=== PATIENT | female | born 1960 | race Hispanic/Latino ===

== ENCOUNTER 2018-05-18 06:49 | Day surgery (SDC) | payer OTHER ==
[2018-05-10 08:07] VITALS: BMI 31.1
[2018-05-18 07:27] LABS: BASO # 0.03 K/mm3 (0.0-2.0); BASO % 0.2 % (0.0-3.0); EOS # 0.1 (0.0-0.7); EOS % 0.7 % (1.5-5.0); GRAN # 13.47 (1.4-6.5); GRAN % 81.6 % (50.0-68.0); HEMOGLOBIN 9.8 g/dL (12.0-16.0); LYMPH # 1.9 (1.2-3.4); LYMPH % 11.4 % (22.0-35.0); MEAN CORPUSCULAR HEMOGLOBIN 30.7 pg (25.0-35.0); MEAN CORPUSCULAR HGB CONC 30.7 g/dl (31.0-37.0); MEAN PLATELET VOLUME 9.3 fl (7.0-11.0); MONO % 6.1 % (1.0-6.0); RBC 3.19 10^6/uL (3.5-6.1); RED CELL DISTRIBUTION WIDTH 15.7 % (11.5-14.5); WHITE BLOOD COUNT 16.5 10^3/uL (4.5-11.0)
[2018-05-18 07:35] LABS: INR 1.2; PARTIAL THROMBOPLASTIN TIME 27.4 Seconds (25.1-36.5); PROTHROMBIN TIME 13.8 SECONDS (9.4-12.5)
[2018-05-18 07:36] LABS: CALCIUM 10.7 mg/dL (8.4-10.5)
[2018-05-18] MEDS ORDERED: Iohexol 350mgl/ml 50 ML ONE (07:43)
[2018-05-18] MEDS ORDERED: Iodixanol 320 MG/ML 100 ML BOTTLE IV ONE (07:43)
[2018-05-18] MEDS ORDERED: Nitroglycerin 50mg in D5W 50 MG/250 ML BOTTLE IV ONE (07:43)
[2018-05-18] MEDS ORDERED: Iodixanol 320 MG/ML 200 ML BOTTLE IV ONE (07:43)
[2018-05-18] MEDS ORDERED: Lidocaine 2% Inj (20ml) ONE ×2 (07:43→09:16)
[2018-05-18] MEDS ORDERED: Phenylephrine 10 mg/ml Inj ONE (07:43)
[2018-05-18] MEDS ORDERED: Verapamil 2 ML ONE (07:44)
[2018-05-18] MEDS ORDERED: Heparin 2,000 ML IV ONE (07:44)
[2018-05-18] MEDS ORDERED: Iodixanol 320 mg/ml 150 ml Bottle IV ONE (07:49)
--- NOTE | 2018-05-18 08:05 | HP ---
DATE OF EXAM: 05/17/2018 REASON FOR ADMISSION: Peripheral angiogram and possible PTCA of left SFA. BRIEF CLINICAL HISTORY: This is a 58-year-old female with past medical history significant for end-stage renal disease, on dialysis Tuesday, Tuesday and Tuesday for 10 years; history of hypertension; gastroesophageal reflux; negative stress test, echo and Holter, but the patient underwent KAIA and PVR that was very abnormal. KAIA and PVR on right side is 0.93 and KAIA on the left 0.77. The patient is scheduled for peripheral angiogram. The patient is complaining of severe claudication of left leg,When she walks has to stop it after half a block and then after taking a rest can walk half a block. PAST MEDICAL HISTORY: Significant for hypertension more than 27 years, gastroesophageal reflux, and end-stage renal disease, on dialysis Tuesday, Tuesday and Tuesday more than 10 years. Recent cardiac workup as follows: The patient had a stress test dated 04/26/2017 showed normal myocardial perfusion study Persantine, ejection fraction 69%. The patient had echocardiography on 04/26/2017 that showed ejection fraction of 61%, moderate aortic regurgitation, mild tricuspid regurgitation, and mild mitral regurgitation dated 04/26/2017. The patient had KAIA and PVR done that shows KAIA on the right is 0.93 and KAIA on the left is 0.77 with the blunting of Blood pressure tracing on the lower extremities. CURRENT MEDICATIONS: The patient is taking Victoza, Flonase, enalapril 20 mg daily, atenolol 100 mg daily, sucralfate 500 mg, ranitidine 150, and amlodipine 5 mg daily. ALLERGIES: VANCOMYCIN, AMOXICILLIN AND CLAVULANIC ACID. REVIEW OF SYSTEMS: As per HPI. PHYSICAL EXAMINATION: VITAL SIGNS: Height of the patient is 5 feet 2 inches, weight of the patient is 170 pounds, and body mass index 31.1 kg/m2. Rest of the examination as follows; temperature afebrile, heart rate 60, and blood pressure 130/80. HEENT: PERRLA EOMI intact. NECK: Supple. No carotid bruit or thyromegaly. CHEST: Clear to auscultation. HEART: S1 and S2 regular. ABDOMEN: Soft. EXTREMITIES: Clubbing and cyanosis negative. A 1+ distal pulse left on the Doppler. IMPRESSION AND PLAN: A 58-year-old female with past medical history significant for end-stage renal disease, on dialysis Tuesday, Tuesday and Tuesday 10 years; hypertension 27 years, gastroesophageal reflux, and abnormal KAIA and PVR. She is scheduled for elective peripheral angiogram and possible angioplasty. Further recommendation after cardiac catheterization and peripheral angiogram. We will follow with you. Thank you Dr. Ballesteros for providing us the opportunity in taking care of the patient, Kim Garces. Emma Augustine MD MTDUmang
[2018-05-18] MEDS ORDERED: Midazolam 2 MG/2 ML VIAL ONE ×2 (08:23→09:01)
[2018-05-18] MEDS ORDERED: Aspirin 325 mg EC Tablets PO SCH (10:00)
[2018-05-18] MEDS ORDERED: Sodium Chloride 0.9% 1,000 ML IV SCH (11:00)
[2018-05-18] MEDS ORDERED: SUCROFERRIC OXYHYDROXIDE 500 MG PO SCH (11:30)
[2018-05-18] MEDS ORDERED: Insulin Reg-LOW-Coverage SC SCH (11:30)
--- NOTE | 2018-05-18 11:36 | CPOSTOP ---
CARDIOVASCULAR LAB POSTPROCEDURE NOTE DATE: 05/18/2018 PHYSICIAN: Dr. Ankit Augustine. COSTING MANAGER: Keri Harmon, husbandry technician, ROBERTA. TYPE OF ANESTHESIA: Moderate conscious sedation, total 2 mg of Versed and 50 of fentanyl given. PRE-PROCEDURE DIAGNOSES: Severe claudication and peripheral arterial disease. PROCEDURE PERFORMED: 1. Abdominal aortogram, distal. 2. Bilateral peripheral angiogram. 3. Stenting of bilateral common iliac. FINDINGS: 90% bilateral common iliac stenosis. FINAL DIAGNOSIS: Severe peripheral artery disease. POST PROCEDURE CONDITION: The post procedure patient condition is stable. VASCULAR ACCESS SITE: Right and left femoral artery. CLOSURE DEVICE: Mynx. TOTAL RADIATION DOSE: 27752.70 milligray unit. TOTAL FLUORO TIME: 14.4 minute. Emma Augustine MD MTDUmang
[2018-05-18 12:03] VITALS: TEMP 97.8
[2018-05-18 13:02] VITALS: RESP 18
--- NOTE | 2018-05-18 14:01 | CP.PCM.CON ---
<ZhannaDarrel hutchison - Last Filed: 05/18/18 21:59> History of Present Illness - History of Present Illness History of Present Illness: Nephro consult Note for Dr. Márquez Service Consulted for: Possible HD This is a 58 yo F with PMH of HTN, GERD, ESRD (2/2 HTN) on HD M/W/F who presented to same-day surgery for elective bilateral LE angiogram. As per Cardio, Nephro consulted to assess if pt needs to undergo HD s/p procedure. As per daughter at bedside, patient has undergone HD each of the last 3 days. Baseline HD is 2-3 hr sessions with approx 3L removed at each session. Tuesday's session was abbreviated due to patient reporting dizziness, and some fluid was returned. Patient underwent another session Tuesday to make up for abbreviated Tuesday session, and had approx 2L removed. Underwent normal session yesterday. No sensation of fluid overload, shortness of breath, orthopnea, cough, LE swelling, or chest pain. Patient lying flat at time of eval in same-day surgery, without complaint or distress. No other active complaints from patient. Bilateral pressure bandaged in groin area, no bleeding or strikethrough observed. As per sleep lab technician staff, patient received 150ccs of visipaque during the procedure, 75cc per leg. Bilateral common iliac stents placed due to bilateral 90% stenosis, as per Cardio. Pt with severe PAD. 12-system ROS reviewed and negative, except as above. PMH: as above PSH: AV fistula graft placement Fam Hx: denies relevant fam hx Soc Hx: reports former tobacco user (1/3 ppd for > 30 yrs, quit > 5 yrs ago), denies alcohol/illicits/IVDA PMD: Dr. Hamm Review of Systems - Review of Systems All systems: reviewed and no additional remarkable complaints except (as per HPI) Past Patient History - CARDIAC Hx Pacemaker: No - NEUROLOGICAL Hx Paralysis: No - HEMATOLOGICAL/ONCOLOGICAL Hx Blood Transfusions: No - MUSCULOSKELETAL/RHEUMATOLOGICAL Hx Musculoskeletal Disorders: No - PSYCHIATRIC Hx Emotional Abuse: No Hx Physical Abuse: No Hx Substance Use: No - SURGICAL HISTORY Hx Surgeries: Yes - ANESTHESIA Hx Anesthesia Reactions: No Hx Malignant Hyperthermia: No Meds Allergies/Adverse Reactions: Allergies Allergy/AdvReac Type Severity Reaction Status Date / Time vancomycin Allergy Severe ANAPHYLAXIS Verified 05/10/18 08:07 amoxicillin [From Augmentin] AdvReac Intermediate ABD PAIN Verified 05/12/18 11:42 clavulanic acid AdvReac Intermediate ABD PAIN Verified 05/12/18 11:42 [From Augmentin] - Medications Medications: Current Medications Amlodipine Besylate (Norvasc) 5 mg PO QAM [facility] Aspirin (Ecotrin) 81 mg PO DAILY [facility] Aspirin (Ecotrin) 325 mg PO DAILY [facility] Last Admin: 05/18/18 10:35 Dose: 325 mg Atenolol (Tenormin) 100 mg PO QPM [facility] Atorvastatin Calcium (Lipitor) 40 mg PO DIN [facility] Clopidogrel Bisulfate (Plavix) 75 mg PO DAILY [facility] Fluticasone Propionate (Flonase) 1 actuation NS DAILY [facility] Insulin Human Regular (Humulin R Low) 0 units SC ACHS [facility]; Protocol Non-Formulary Medication (Enalapril Maleate [Vasotec]) 20 mg PO QAM [facility] Non-Formulary Medication (Liraglutide [Victoza 2-Federico]) 0.6 mg SQ QPM [facility] Non-Formulary Medication (Ranitidine Hcl [Heartburn Relief]) 150 mg PO BID [facility] Non-Formulary Medication (Sucroferric Oxyhydroxide [Velphoro]) 500 mg PO ACTID [facility] Physical Exam - Constitutional Appears: Non-toxic, No Acute Distress - Head Exam Head Exam: ATRAUMATIC, NORMAL INSPECTION, NORMOCEPHALIC - Eye Exam Eye Exam: Normal appearance. absent: Conjunctival injection, Scleral icterus Pupil Exam: absent: Irregular, Unequal - ENT Exam ENT Exam: Mucous Membranes Moist - Neck Exam Neck exam: Positive for: Full Rom, Normal Inspection - Respiratory Exam Respiratory Exam: Clear to Auscultation Bilateral, NORMAL BREATHING PATTERN. absent: Accessory Muscle Use, Chest Wall Tenderness, Decreased Breath Sounds, Rales, Rhonchi, Wheezes - Cardiovascular Exam Cardiovascular Exam: REGULAR RHYTHM, RRR, +S1, +S2. absent: Bradycardia, Tachycardia, Irregular Rhythm, JVD, +S4 - GI/Abdominal Exam GI & Abdominal Exam: Normal Bowel Sounds, Soft. absent: Diminished Bowel Sounds, Hyperactive Bowel Sounds, Hypoactive Bowel Sounds, Tenderness - Extremities Exam Extremities exam: Positive for: normal capillary refill, pedal pulses present (bilateral dorsalis pedis +1 pulses, +2 radials bilaterally). Negative for: calf tenderness, pedal edema, tenderness Additional comments: bilateral LE groin pressure bandages in place, no palpable masses, no bleeding or strikethrough seen through bandages - Back Exam Back exam: absent: CVA tenderness (L), CVA tenderness (R) - Neurological Exam Additional comments: awake and alert, following all commands, holding LE immobile intentionally but moving bilateral UE spontaneously - Psychiatric Exam Psychiatric exam: Normal Affect, Normal Mood - Skin Skin Exam: Dry, Intact (except as documented in extremities exam), Normal Color, Warm Results - Vital Signs Recent Vital Signs: Last Vital Signs Temp 97.8 F 05/18/18 13:15 Pulse 65 05/18/18 13:15 Resp 18 05/18/18 13:15 BP 125/60 05/18/18 13:15 Pulse Ox 97 05/18/18 13:15 - Labs Result Diagrams: 05/18/18 15:16 05/18/18 15:16 Labs: Laboratory Results - last 24 hr 05/18/18 05/18/18 05/18/18 07:00 07:00 07:00 WBC 16.5 H RBC 3.19 L Hgb 9.8 L Hct 31.9 L MCV 100.0 MCH 30.7 MCHC 30.7 L RDW 15.7 H Plt Count 288 MPV 9.3 Gran % 81.6 H Lymph % (Auto) 11.4 L Gilliam % (Auto) 6.1 H Eos % (Auto) 0.7 L Baso % (Auto) 0.2 Gran # 13.47 H Lymph # (Auto) 1.9 Gilliam # (Auto) 1.0 H Eos # (Auto) 0.1 Baso # (Auto) 0.03 PT 13.8 H INR 1.20 APTT 27.4 Sodium 140 Potassium 4.2 Chloride 100 Carbon Dioxide 29 Anion Gap 15 BUN 31 H Creatinine 5.6 H Est GFR ( Amer) 9 Est GFR (Non-Af Amer) 8 Random Glucose 149 H Calcium 10.7 H Triglycerides 179 H Cholesterol 163 LDL Cholesterol Direct 95 HDL Cholesterol 28 L Blood Type Blood Type Confirm Antibody Screen BBK History Checked 05/18/18 05/18/18 07:00 07:57 WBC RBC Hgb Hct MCV MCH MCHC RDW Plt Count MPV Gran % Lymph % (Auto) Gilliam % (Auto) Eos % (Auto) Baso % (Auto) Gran # Lymph # (Auto) Gilliam # (Auto) Eos # (Auto) Baso # (Auto) PT INR APTT Sodium Potassium Chloride Carbon Dioxide Anion Gap BUN Creatinine Est GFR ( Amer) Est GFR (Non-Af Amer) Random Glucose Calcium Triglycerides Cholesterol LDL Cholesterol Direct HDL Cholesterol Blood Type O POSITIVE Blood Type Confirm O POSITIVE Antibody Screen Negative BBK History Checked No verified bt Assessment & Plan - Assessment and Plan (Free Text) Assessment: This is a 58 yo F with PMH of HTN, GERD, ESRD (2/2 HTN) on HD M/W/F who presented to same-day surgery for elective bilateral LE angiogram. As per Cardio, Nephro consulted to assess if pt needs to undergo HD s/p procedure. Plan: Patient does not require HD at this time. She should instead present for her routine HD tomorrow, and continue her current schedule. Reviewed and discussed with attending, Dr. Márquez. <Chaz Márquez S - Last Filed: 05/20/18 18:02> Results - Vital Signs Recent Vital Signs: Last Vital Signs Temp 97.8 F 05/18/18 15:30 Pulse 66 05/18/18 16:58 Resp 18 05/18/18 16:58 BP 124/64 05/18/18 16:58 Pulse Ox 97 05/18/18 16:58 - Labs Result Diagrams: 05/18/18 15:16 05/18/18 15:16 Assessment & Plan - Assessment and Plan (Free Text) Plan: Pt seen and examined. This is a late entry. I have reviewed the note of the medical supply technician and agree with it. I have reviewed the meds and labs of the pt. I have discussed the assessment and plan with the resident. Pt had 3 days of HD. She is going to get HD in the am 1st shift. Spoke to Dr Augustine. She had a cath.
[2018-05-18 15:23] LABS: BASO # 0.02 K/mm3 (0.0-2.0); BASO % 0.2 % (0.0-3.0); EOS # 0.1 (0.0-0.7); GRAN # 8.6 (1.4-6.5); GRAN % 78.1 % (50.0-68.0); HEMOGLOBIN 8.5 g/dL (12.0-16.0); LYMPH # 1.7 (1.2-3.4); LYMPH % 15.5 % (22.0-35.0); MEAN CELL VOLUME 99.6 fl (80.0-105.0); MEAN CORPUSCULAR HEMOGLOBIN 30.6 pg (25.0-35.0); MEAN CORPUSCULAR HGB CONC 30.7 g/dl (31.0-37.0); MONO # 0.6 (0.1-0.6); MONO % 5.2 % (1.0-6.0); RBC 2.78 10^6/uL (3.5-6.1); RED CELL DISTRIBUTION WIDTH 15.8 % (11.5-14.5)
[2018-05-18 16:04] VITALS: O2SAT 97
[2018-05-18 16:59] VITALS: BP 124/64; PULSE 66
[2018-05-18] MEDS ORDERED: RANITIDINE HCL 150 MG PO SCH (18:00)
[2018-05-18] MEDS ORDERED: LIRAGLUTIDE 0.6 MG SQ SCH (18:00)
[2018-05-19] MEDS ORDERED: Fluticasone Nasal 50 mcg/Spray NS SCH (10:00)
[2018-05-19] MEDS ORDERED: Non Formulary Medication (Enalapril Maleate [Vasotec] 20 MG) PO SCH (10:00)
--- NOTE | 2018-05-19 10:35 | VAS ---
DATE: 05/18/2018 TYPE OF DICTATION: Peripheral angiogram, abdominal aortogram and bilateral PTCA of common iliac. PROCEDURES PERFORMED: 1. Distal abdominal aortogram. 2. Bilateral lower extremities peripheral angiogram with three vessels runoff using DSA (digital substraction angiography). 3. Plain balloon angioplasty simultaneously with kissing balloon of both common iliac. 4. Stenting of both common iliac simultaneously with kissing stent with balloon inflated stent in both common iliac. REFERRING PHYSICIAN: Jason Ballesteros MD SOLDERER ASSEMBLER: Emma Augustine MD MANAGER BUSINESS CONTINUITY: ROBERTA Zimmerman SCHEDULING: Elective. INDICATION FOR THE PROCEDURE: Chronic limb ischemia (CLI), severe claudication of leg more on the left than right, severely decreased abnormal KAIA. BRIEF CLINICAL HISTORY: This is a 58-year-old female, mildly obese with a past medical history significant for end-stage renal disease, on dialysis, Tuesday, Tuesday, and Tuesday more than 10 years; history of hypertension more than 27 years; history of gastroesophageal reflux who was complaining of severe leg pain walking half a block, more on the left than right, the patient has to stop, so the patient was sent for AKIA/PVR by Dr. Jason Ballesteros and found to be very abnormal, on the right side 0.93 and left 0.77 with no significant palpable pulse and only Doppler signals noted, more on right than left. Prior to that the patient also underwent cardiac workup including a stress test dated 04/26/2017 that shows normal myocardial perfusion study, Persantine ejection fraction of 69%. The patient also had echocardiography on 04/26/2017 that showed ejection fraction of 61%, moderate aortic regurgitation, mild tricuspid regurgitation, mild mitral regurgitation dated 04/26/2017. The patient had KAIA and PVR done that shows right 0.9 and KAIA on the left 0.77 and blunting of the blood pressure tracing response noted on both lower extremities. In view of above, the patient was scheduled for peripheral angiogram and possible intervention in the lower extremities. PERIPHERAL ANGIOGRAM AND TECHNIQUE: Relative risk and indication of the procedure were explained to the patient, the patient agreed, consent obtained. The patient was placed in supine position on the arteriogram table. The right groin was prepped and then access obtained from the right groin with micropuncture technique. Omni Flush #5-Danish sheath was placed and an Omni Flush catheter was placed at the level of renal artery and first abdominal aortogram was done and this Omni Flush catheter was pulled at the bifurcation of the aorta and then bilateral lower extremities runoff using a DSA was obtained up to the foot. Also, left and right anterior oblique view was obtained at the level of SFA region. Left femoral access was obtained and both groins was placed 7-Danish short sheath with radiopaque marker and then a stiff Glidewire was placed long. [place] balloon over the wire, 5 x 80 on the left common iliac and 5 x 40 on the right common iliac was placed just above the bifurcation of the aorta, continue common iliac and then inflated up to 8 atmospheres and then this [place] balloon was taken out and then Omnilink stent metal over the balloon 8 x 59 was placed on the left common iliac continued at the bifurcation of the aorta and 8 x 39, that is 8 mm in diameter and 39 mm in length was placed at right common iliac, starting from just above the bifurcation, continue right common iliac and simultaneously with Kissing stent inflated up to the 12 atmosphere for 45 seconds. Before this, 1000 heparin was given and after this balloon and stent, everything was taken out and repeat ACT was checked, found to be 148 second and both puncture site was closed with Mynx device. Before closing a final picture was taken of introducing the Omni Flush catheter and quick bolus [place] was done up to trifurcation and noticed reduction of the stenosis from 90%, right common iliac to 0, left common iliac to 90% to 0 and distal three vessels runoff noted with a good flow. FINDINGS: As follows; Diffuse calcification noted in the abdominal aorta with bifurcating common iliac, right and left. Left common iliac calcification noted just after the origin, 1 cm after that. Left common iliac 90% to 95% stenosis noted with significant drop in the blood pressure and taking the RENE catheter 60 mm drop in blood pressure noted post stenosis. This left common iliac artery divides into Externa iliac and Internal Iliac. External iliac then then continued the common femoral and the common femoral split into SFA (superficial femoral artery) and profunda femoral artery. Superficial femoral artery continued as a popliteal adductor canal. At that level, there is 60% stenosis noted then it trifurcates below the knee into anterior tibial and common peroneal trunk. Common peroneal trunk continued as a posterior tibial, very rudimentary peroneal artery noted and it continued in the foot with two vessels runoff noted, but no significant flow obstructive stenosis noted. Right common iliac plaque noted and at the origin of the right common iliac 90% stenosis, ulcerated plaque noted and then right common iliac continued as external iliac and internal iliac. External iliac continued the common femoral artery. The common femoral split into SFA (superficial femoral artery) and profunda artery. As soon as it takes off the right SFA (superficial femoral artery), there is 80% stenosis noted, a 0.5 mm after the origin and there is a calcified plaque noted after the stenosis. Then, this right SFA continued as a popliteal trunk in the rectal canal and then bifurcated into anterior tibial and common peroneal trunk. Common peroneal trunk gives a posterior tibial a very rudimentary peroneal artery and that continues into the foot. Two vessel significant runoff noted, but no flow obstructive stenosis noted. Successful balloon angioplasty first with bilateral common iliac using [place] balloon 5 x 40 on the right side, 5 x 80 on the left common iliac over a stiff Glidewire was done and then this balloon was removed and then Omnilink stent over the balloon, used size was 8 x 59 on the left common iliac and 8 x 39 on the right and inflated up to 12 atmosphere simultaneously with kissing stent for 45 seconds at 12 atmosphere. After the both side, the balloon was removed. Final pictures were taken with bolus [place] and then everything was removed and puncture site both was sealed with Mynx closing device. Manual pressure placed on both sides for 10 minutes and then pressure applied and the patient returned to the floor in a stable condition. In summary, the patient has a significant bilateral common iliac stenosis at the left side, 90% to 95% stenosis with 60 mm drop in pressure post stenosis, where as in the right at the origin of the common iliac, 90% stenosis noted with successfully PTCA with stent deployed with reduction in stenosis from 90% to 0 on the right and 95% to 0 on the left. At the end of the procedure, palpable bilateral dorsalis pedis noted and very loud Doppler signals noted in posterior tibial bilaterally Conclusion: 1-B/l Severe Common Iliac Diz....Successfully stented. 2- Rioght SFA 80% stenosis at origin and calcifeied Plaque further few mm down 3- Left SFA / popliteal trunk at adductor canal has 60% stenosis. Recommendation: F/u KAIA in 3 months or if remains symptomatic, consider CSI atherrectomy of Right SFA followed by PTCA with DCB ( Drug coated Balloon) Plan is to discontinue fluid because the patient is end-stage renal dialysis, total of 360 mL of contrast used. The patient had dialysis Tuesday, Tuesday, Tuesday and due for dialysis tomorrow. Renal consult ordered with Dr. John to evaluate the patient needs dialysis today or tomorrow. We will load with Plavix 300 and aspirin 325 today and will continue aspirin and Plavix for one month and repeat KAIA in three months. If the patient remains stable, we will discontinue home tomorrow. In addition to the baseline medication, continue atorvastatin, aspirin and Plavix. Follow up in two weeks and follow up KAIA in three months. Thank you, Dr. Ballesteros for providing us the opportunity in taking care of the patient, Kim Martínez. We will follow with you. Emma Augustine MD cc: Jason Ballesteros MD MTDD
== END 2018-05-18 17:00 | disposition home or self-care (01) ==
LOC: SDSVAS 06:49
PROVIDERS: ATTEND Internal Medicine Cardiovascular Disease
DX: I73.9 Peripheral vascular disease, unspecified (principal); I12.0 Hypertensive chronic kidney disease with stage 5 chronic kidney disease or end stage renal disease; N18.6 End stage renal disease; K21.9 Gastro-esophageal reflux disease without esophagitis; I08.3 Combined rheumatic disorders of mitral, aortic and tricuspid valves; Z99.2 Dependence on renal dialysis; Z79.82 Long term (current) use of aspirin; Z88.0 Allergy status to penicillin
CPT/HCPCS: 36415; 37221; 75716; 80048; 80061; 85025; 85175; 85610; 85730; 86850; 86900; 99152; 99153; C1725 ×2; C1760 ×2; C1769 ×4; C1876 ×2; C1887; C1894 ×2; J1644 ×2; J2250; J3010; J7030; Q9966; Q9967 ×2